=== PATIENT | female | born 1980 | race Caucasian/White ===

== ENCOUNTER 2017-07-09 21:05 | Observation (INO) | payer MEDICAID ==
[~2017-07-09 21:05] MED LIST: CALC0.25 PO; COUM1TAB PO; COUM3TAB PO; FURO40TA PO; GABA100C4 PO; HYDR200T3 PO; LISI10TA3 PO; METO2.5T PO; METO50TA PO; MYCO1TAB2 PO; OMEP40CA2 PO; POTA10CA PO; PRED10 PO; SIMV20TA PO; TRAM50TA PO
[2017-07-09] MEDS ORDERED: MORPHINE SULFATE 4 MG/ML INJ IV PUSH PRN (22:00)
[2017-07-09] MEDS ORDERED: ALPRAZolam 0.25 MG TAB PO PRN (22:00)
[2017-07-09] MEDS ORDERED: NITROGLYCERIN 0.4 MG SL 25 TABS/BTL SL PRN (22:00)
[2017-07-09] MEDS ORDERED: TEMAZEPAM 15 MG CAP PO PRN (22:00)
[2017-07-09] MEDS ORDERED: ONDANSETRON HCL 4 MG/2 ML VIAL IV PUSH PRN (22:00)
[2017-07-09] MEDS ORDERED: SODIUM CHLORIDE 0.9% FLUSH 10 ML FLUSH IV FLUSH PRN ×2 (22:00)
[2017-07-09 22:19] VITALS: BP 115/75; PULSE 78; RESP 18; TEMP 98.2; O2SAT 100
[2017-07-10] VITALS: PULSE 86
[2017-07-10 03:53] VITALS: BP 108/66; PULSE 83; RESP 18; TEMP 98.6; O2SAT 98
[2017-07-10 04:00] VITALS: PULSE 71
[2017-07-10] MEDS ORDERED: ACETAMINOPHEN 325 MG TAB PO ONE (07:45)
[2017-07-10 07:54] VITALS: BP 126/75; PULSE 85; RESP 19; TEMP 97.7; O2SAT 100
[2017-07-10 08:00] VITALS: PULSE 80
[2017-07-10] MEDS ORDERED: GABAPENTIN 100 MG CAP PO SCH (09:00)
[2017-07-10] MEDS ORDERED: METOPROLOL TARTRATE 50 MG TAB PO SCH (09:00)
[2017-07-10] MEDS ORDERED: LISINOPRIL 10 MG TAB PO SCH (09:00)
[2017-07-10] MEDS ORDERED: POTASSIUM CHLORIDE 10 MEQ CAP PO SCH (09:00)
[2017-07-10] MEDS ORDERED: ASPIRIN 325 MG TAB PO SCH (09:00)
[2017-07-10] MEDS ORDERED: predniSONE 10 MG TAB PO SCH (09:00)
[2017-07-10] MEDS ORDERED: MYCOPHENOLATE SODIUM 360 MG DELAYED RELEASE TAB PO SCH (09:00)
[2017-07-10] MEDS ORDERED: FUROSEMIDE 40 MG TAB PO SCH (09:00)
[2017-07-10] MEDS ORDERED: HYDROXYCHLOROQUINE SULFATE 200 MG TAB PO SCH (09:00)
[2017-07-10] MEDS ORDERED: REGADENOSON INJ 0.4 MG/5 ML SYR ONE (10:06)
--- NOTE | 2017-07-10 11:25 | RADRPT ---
EXAM DATE/TIME: 07/10/2017 09:26 [place] COMPARISON: No previous studies available for comparison. INDICATIONS : Substernal chest pain. Angina. DOSE: 25.5 mCi Tc99m Myoview at stress. 8.5 mCi Tc99m Myoview at rest. 0.4 mg Lexiscan STRESS SYMPTOMS: Stomach cramps and shortness of breath. EJECTION FRACTION: > 70% MEDICAL HISTORY : Hypertension. Gastroesophageal reflux disease. SURGICAL HISTORY : Tubal ligation. ENCOUNTER: Initial ACUITY: 1 day PAIN SCALE: 7/10 LOCATION: Substernal chest TECHNIQUE: The patient underwent pharmacologic stress with infusion of prescribed dose. Continuous ECG tracing was monitored during stress. Gated SPECT imaging was performed after stress and conventional SPECT i maging was performed at rest. The examination was performed on a SPECT/CT scanner, both attenuation and non-corrected datasets were reviewed. FINDINGS: The best perfused myocardium in the anterior anterolateral wall. Moderate gut activity does obscure t he inferior wall. Ejection fraction is 70% and normal wall motion. CONCLUSION: Negative for stress-induced ischemia. RISK CATEGORY: Low (<1% Annual Mortality Rate) Axel Montgomery MD FACR on July 10, 2017 at 11:23 Board Certified Radiologist. This report was verified electronically.
--- NOTE | 2017-07-10 11:51 | HHI.DCPOC ---
Discharge Care Plan Diagnosis: (1) Chest pain (2) Lupus (3) Hypertension (4) Hyperlipidemia Goals to Promote Your Health HOLD WARFARIN TODAY. START 1.5MG 5 DAYS PER WEEK, 3MG TWO DAYS A WEEK. RESTART 1.5MG WARFARIN TOMORROW. DISCUSS WITH YOUR AGRONOMY RESEARCH MANAGER. * To prevent worsening of your condition and complications * To maintain your health at the optimal level Directions to Meet Your Goals Take your medications as prescribed Follow your dietary instruction Follow activity as directed Keep your appointments as scheduled Take your immunizations and boosters as scheduled If your symptoms worsen call your PCP, if no PCP go to Urgent Care Center or Emergency Room Smoking is Dangerous to Your Health. Avoid second hand smoke Call the 24-hour hour crisis hotline for domestic abuse at Dusty Harvey Jul 10, 2017 11:51
--- NOTE | 2017-07-10 12:21 | HHI.HP ---
[facility] Primary Care Physician Ren Alexandre MD Chief Complaint Chest pain History of Present Illness This is a 37-year-old female with history of lupus, lupus nephritis, hypertension and a blood clotting disorder that has her on warfarin, that presents to ED in [place] to evaluate chest discomfort. States she has had the last 3 months intermittent elevated blood pressure readings as well as intermittent chest discomfort. She describes as a tightness in the center of her chest with occasional shortness of breath. Nothing in particular seems to worsen or improve her symptoms. Denies nausea or diaphoresis. Review of Systems General: Patient denies fevers, chills recent, and recent travel HEENT: Patient denies headache, sore throat, difficulty swallowing. Cardiovascular: Has the chest discomfort as mentioned above. Denies sensation of heart beating rapidly or irregularly. No syncope. Denies diaphoresis. Respiratory: Occasional shortness of breath. Denies inspirational chest discomfort. Denies coughing wheezing or hemoptysis. GI: Patient denies nausea, vomiting, diarrhea, abdominal pain, bloody stools. Musculoskeletal: Patient denies joint pain or edema. Denies calf pain or edema. Neurovascular: Patient denies numbness, tingling, weakness in extremities. Denies headache. Endocrine: Denies polyuria and polydipsia. Hematologic: Denies easy bruising. Skin: Denies rash or itching. Past Family Social History Allergies: Coded Allergies: No Known Allergies (Unverified , 07/09/17) Past Medical History Lupus, lupus nephritis, hypertension, a blood clotting disorder requiring her to be on warfarin. A while ago she was in acute renal failure needing temporary dialysis. Denies diabetes and CAD. Reported Medications Reported Meds & Active Scripts Active Reported Lisinopril 10 Mg Tab 10 Mg PO DAILY Prednisone 10 Mg Tab 10 Mg PO DAILY Furosemide 40 Mg Tab 40 Mg PO BID Simvastatin 20 Mg Tab 20 Mg PO HS Gabapentin 100 Mg Cap 100 Mg PO BID Metolazone 2.5 Mg Tab 2.5 Mg PO M/W/F Coumadin (Warfarin) 1 Mg Tab 1.5 Mg PO M/W/F/SA Coumadin (Warfarin) 3 Mg Tab 3 Mg PO T/R/SUN Metoprolol Tartrate 50 Mg Tab 50 Mg PO BID Calcitriol 0.25 Mcg Cap 0.25 Mcg PO M/W/F Omeprazole 40 Mg Cap 40 Mg PO HS Potassium Chloride ER (Potassium Chloride) 10 Meq Cap 10 Meq PO DAILY Hydroxychloroquine (Hydroxychloroquine Sulfate) 200 Mg Tab 200 Mg PO BID Takw with food Mycophenolic Acid (Mycophenolate Sodium) 360 Mg Tab 2 Tab PO DAILY Tramadol (Tramadol HCl) 50 Mg Tab 50 Mg PO TID PRN Active Ordered Medications Current Medications Medications (Trade) Dose Ordered Sig/Kat Route Start Time Stop Time Status Last Admin (NS Flush) 2 ml UNSCH PRN IV FLUSH 07/09/17 22:00 (NS Flush) 2 ml UNSCH PRN IV FLUSH 07/09/17 22:00 (Morphine Inj) 2 mg Q4H PRN IV PUSH 07/09/17 22:00 (Zofran Inj) 4 mg Q6H PRN IV PUSH 07/09/17 22:00 07/10/17 11:17 (Nitrostat Sl) 0.4 mg Q5M PRN SL 07/09/17 22:00 (Aspirin) 325 mg DAILY PO 07/10/17 09:00 07/10/17 11:13 (Lasix) 40 mg BID PO 07/10/17 09:00 07/10/17 11:13 (Neurontin) 100 mg BID PO 07/10/17 09:00 07/10/17 11:13 (Plaquenil) 200 mg BID PO 07/10/17 09:00 07/10/17 11:13 (Prinivil) 10 mg DAILY PO 07/10/17 09:00 07/10/17 11:13 (Lopressor) 50 mg BID PO 07/10/17 09:00 07/10/17 11:13 (My[address] Dr) 720 mg DAILY PO 07/10/17 09:00 07/10/17 11:17 (KCl) 10 meq DAILY PO 07/10/17 09:00 07/10/17 11:13 (Deltasone) 10 mg DAILY PO 07/10/17 09:00 07/10/17 11:12 (Protonix) 40 mg HS PO 07/10/17 21:00 (Pravachol) 40 mg HS PO 07/10/17 21:00 Family History Denies family history of CAD. Social History Does not smoke. Denies alcohol or illicit drugs. Physical Exam Vital Signs Vital Signs Date Time Temp Pulse Resp B/P (MAP) Pulse Ox O2 Delivery O2 Flow Rate FiO2 07/10/17 08:00 80 07/10/17 07:54 97.7 85 19 126/75 (92) 100 07/10/17 04:00 71 07/10/17 03:53 98.6 83 18 108/66 (80) 98 07/10/17 00:00 86 07/09/17 22:19 98.2 78 18 115/75 (88) 100 Physical Exam GENERAL: This is a well-nourished, well-developed patient, in no apparent distress. Patient speaks in clear complete sentences. Patient is pleasant. HEENT: Head is atraumatic and normocephalic. Neck is supple without lymphadenopathy and trachea is midline. No JVD or carotid bruits. CARDIOVASCULAR: Regular rate and rhythm without murmurs, gallops, or rubs. RESPIRATORY: Clear to auscultation. Breath sounds equal bilaterally. No wheezes , rales, or rhonchi. Chest wall is nontender. No use of accessory muscles. GASTROINTESTINAL: Abdomen is nontender, nondistended. Abdomen soft. Normal bowel sounds in all quadrants. MUSCULOSKELETAL: Patient is moving upper and lower extremities freely. No calf tenderness or edema, no Homans sign. Strong pulses in upper and lower extremities. NEUROLOGICAL: Patient is alert and oriented. Cranial nerves 2-12 are grossly intact. No focal deficits and speech is clear. SKIN: No rash and turgor is normal. Laboratory Laboratory Tests Test 07/09/17 22:15 07/10/17 07:59 Troponin I LESS THAN 0.02 Erythrocyte Sedimentation Rate 25 Imaging Chest x-ray reveals nothing acute. Course EKGs are sinus rhythm without significant ST segment depressions or elevations. Caprini VTE Risk Assessment Caprini VTE Risk Assessment: No/Low Risk (score <= 1) Caprini Risk Assessment Model Point Value = 1 Point Value = 2 Point Value = 3 Point Value = 5 Age 41-60 Minor surgery BMI > 25 kg/m2 Swollen legs Varicose veins or History of unexplained or recurrent spontaneous Oral contraceptives or hormone replacement Sepsis (< 1 month) Serious lung disease, including pneumonia (< 1 month) Abnormal pulmonary function Acute myocardial infarction Congestive heart failure (< 1 month) History of inflammatory bowel disease Medical patient at bed rest Age 61-74 Arthroscopic surgery Major open surgery (> 45 min) Laparoscopic surgery (> 45 min) Malignancy Confined to bed (> 72 hours) Immobilizing plaster cast Central venous access Age >= 75 History of VTE Family history of VTE Factor V Leiden Prothrombin [id number] Lupus anticoagulant Anticardiolipin antibodies Elevated serum homocysteine Heparin-induced thrombocytopenia Other congenital or acquired thrombophilia Stroke (< 1 month) Elective arthroplasty Hip, pelvis, or leg fracture Acute spinal cord injury (< 1 month) Prophylaxis Regimen Total Risk Factor Score Risk Level Prophylaxis Regimen 0-1 Low Early ambulation 2 Moderate Order ONE of the following: *Sequential Compression Device (SCD) *Heparin 5000 units SQ BID 3-4 Higher Order ONE of the following medications: *Heparin 5000 units SQ TID *Enoxaparin/Lovenox 40 mg SQ daily (WT < 150 kg, CrCl > 30 mL/min) *Enoxaparin/Lovenox 30 mg SQ daily (WT < 150 kg, CrCl > 10-29 mL/min) *Enoxaparin/Lovenox 30 mg SQ BID (WT < 150 kg, CrCl > 30 mL/min) AND/OR *Sequential Compression Device (SCD) 5 or more Highest Order ONE of the following medications: *Heparin 5000 units SQ TID (Preferred with Epidurals) *Enoxaparin/Lovenox 40 mg SQ daily (WT < 150 kg, CrCl > 30 mL/min) *Enoxaparin/Lovenox 30 mg SQ daily (WT < 150 kg, CrCl > 10-29 mL/min) *Enoxaparin/Lovenox 30 mg SQ BID (WT < 150 kg, CrCl > 30 mL/min) AND *Sequential Compression Device (SCD) Assessment and Plan Assessment and Plan * Chest pain: Patient has had serial cardiac enzymes and EKGs for ruling out purposes. She has been seen by Dr. Rey Dale of cardiology in the chest pain center and will undergo a Lexiscan myocardial perfusion stress test. She' ll be discharged home with this is nonischemic with instructions to follow-up with PCP. She will also need to have her INR rechecked with her physician monitoring this. She will hold warfarin today. She will change her warfarin to 1.5 mg 5 days a week and 3 mg twice a week starting 1.5 mg tomorrow. * Lupus: Continue current medication. * Hypertension: Continue current medication. * Hyperlipidemia: Continue current medication. Patient is stable at this time. She is agreeable to this plan. Azzarello,Dusty A. PA Jul 10, 2017 12:21
--- NOTE | 2017-07-10 15:47 | EKG ---
Date Performed: 07/09/2017 Time Performed: 22:24:34 PTAGE: 37 years EKG: Sinus rhythm NORMAL ECG NO PREVIOUS TRACING DOCTOR: Rye Dale Interpretating Date/Time 07/10/2017 15:45:01
--- NOTE | 2017-07-10 15:54 | TR ---
Date Performed: 07/10/2017 Time Performed: 10:09:48 DOCTOR: Rey Dale DRUG LIST: CLINICAL HISTORY: REASON FOR TEST: Angina REASON FOR ENDING: OBSERVATION: CONCLUSION: Lexiscan stress test was performed under standard four minute protocol. Radionuclid e was injected one minute prior to ending the test. No electrocardiographic abormalities were present to suggest ischemia. Nuclear imaging and interpretation are pending. COMMENTS:
[2017-07-10] MEDS ORDERED: PANTOPRAZOLE SOD 40 MG DELAYED RELEASE TAB PO SCH (21:00)
[2017-07-10] MEDS ORDERED: PRAVASTATIN SOD 40 MG TAB PO SCH (21:00)
== END 2017-07-10 12:51 | disposition home or self-care (01) ==
LOC: NEDDLT 21:05 → NEPHCDU 21:15
PROVIDERS: ADMIT Internal Medicine Interventional Cardiology; ATTEND Internal Medicine Interventional Cardiology
DX: R07.9 Chest pain, unspecified (principal); I10 Essential (primary) hypertension; E78.5 Hyperlipidemia, unspecified; D68.9 Coagulation defect, unspecified; M32.14 Glomerular disease in systemic lupus erythematosus; R06.02 Shortness of breath; I20.9 Angina pectoris, unspecified; K21.9 Gastro-esophageal reflux disease without esophagitis; Z79.899 Other long term (current) drug therapy; Z79.01 Long term (current) use of anticoagulants
CPT/HCPCS: 71010; 78452; 80053; 82550; 83880; 84484; 84702; 85025; 85379; 85610; 85652; 85730; 93005; 93017; 99285; A9502; J2405; J2785; J7512; J7518; 99281